=== PATIENT | female | born 1995 | race Caucasian/White ===

== ENCOUNTER 2019-04-25 06:05 | Inpatient (IN) | payer OTHER ==
[~2019-04-25] VITALS: Ht 160 cm; Wt 93.0 kg
--- OUTSIDE RECORDS SUMMARY | ~2019-04-25 | XMS | Clinical Summary ---
Demographics + + + | Address | [address] | | | [place] [address] | + + + | Home Phone | | + + + | Preferred Language | Unknown | + + + | Marital Status | Single | + + + | Taoist Affiliation | 1013 | + + + | Race | Unknown | + + + | Ethnic Group | Unknown | + + + Author + + + | Author | [facility] | | | and [place] | + + + | Organization | [facility] | | | and [place] | + + + | Address | Unknown | + + + | Phone | Unavailable | + + + Support + + +---------+ + | Name | Relationship | Address | Phone | + + +---------+ + | Chastity Petty | ECON | Unknown | | + + +---------+ + | Nyasia Lindsay | ECON | Unknown | | + + +---------+ + Care Team Providers + +------+ + | Care Heel Cutter Name | Role | Phone | + +------+ + | Josee Person | PCP | | + +------+ + Allergies No Known Allergies Medications + + + +---------+------+------+-------+ | Medication | Sig | Dispensed | Refills | Star | End | Statu | | | | | | t | Date | s | | | | | | Date | | | + + + +---------+------+------+-------+ | Biotin 2.5 MG CAPS | Take 1 capsule by | | 0 | | | Activ | | | mouth Daily. | | | | | e | + + + +---------+------+------+-------+ | topiramate | Take 1 tablet by | 30 | 11 | 02/25 | | Activ | | (TOPAMAX) 25 mg | mouth At Bedtime. | tablet | | 7/20 | | e | | tabletIndications: | | | | 18 | | | | Intractable migraine | | | | | | | | with aura with | | | | | | | | status migrainosus | | | | | | | + + + +---------+------+------+-------+ | naproxen sodium | Take 1 tablet by | 30 | 3 | 02/25 | | Activ | | (ANAPROX) 550 MG | mouth Twice daily | tablet | | 720 | | e | | tabletIndications: | as needed. | | | 18 | | | | Intractable migraine | | | | | | | | with aura with | | | | | | | | status migrainosus | | | | | | | + + + +---------+------+------+-------+ | cephalexin | Take 1 capsule by | 40 | 0 | 10/0 | | Activ | | (KEFLEX) 500 mg | mouth 4 times daily. | capsule | | 8/20 | | e | | capsule | | | | 18 | | | + + + +---------+------+------+-------+ | ondansetron | Take 1 tablet by | 24 | 0 | 10/0 | | Activ | | (ZOFRAN ODT) 4 mg | mouth every 8 hours | tablet | | 8/20 | | e | | disintegrating | as needed for | | | 18 | | | | tablet | Nausea. | | | | | | + + + +---------+------+------+-------+ Active Problems + + + | Problem | Noted Date | + + + | Intractable migraine with aura with status migrainosus | 11/23/2017 | + + + Immunizations + + + + | Name | Dates Previously Given | Next Due | + + + + | DTP (PED) | 02/13/2003, 12/09/1999, 06/10/1998, | | | | 03/13/1998, 01/01/1998 | | + + + + | HEP A, 2 DOSE | 02/13/2003, 11/02/2000 | | | (PED/ADOL) | | | + + + + | HIB (PRP-OMP), 3 | 02/08/2000 | | | DOSE (PED) | | | + + + + | HIB HBOC CONJUGATE, | 02/08/2000, 12/09/1999, 06/10/1998, | | | 4 DOSE (PED) | 03/13/1998, 01/01/1998 | | + + + + | HPV, QUADRIVALENT, 3 | 01/04/2012, 07/03/2010, 05/16/2010 | | | DOSE (ADOL/ADULT) | | | + + + + | Hep B (PED/ADOL) 3 | 06/10/1998, 01/01/1998, 1997 | | | DOSE | | | + + + + | INFLUENZA PF | 04/18/2015, 04/04/2014 | | | TRIVALENT(PED/ADOL/A | | | | DULT)ANDERSONKT | | | + + + + | INFLUENZA, TRIVALENT | 05/16/2010 | | | NASAL | | | | (PED/ADOL/ADULT) | | | + + + + | MENINGOCOCCAL | 05/16/2010 | | | CONJUGATE,MENACTRA | | | | (PED/ADOL/ADULT) | | | + + + + | MMR, 2 DOSE | 02/13/2003, 12/23/1998 | | | (PED/ADULT) | | | + + + + | PNEUMOCOCCAL PCV7 | 11/02/2000 | | | (PED) | | | + + + + | PNEUMOCOCCAL | 11/02/2000 | | | POLYSACCHARIDE | | | | 23-VALENT (PPSV23) | | | + + + + | TDAP, (ADOL/ADULT) | 05/16/2010 | | + + + + | VARICELLA, 2 DOSE | 10/25/2008, 12/23/1998 | | | (VARIVAX) | | | + + + + Family History + + +------+ + | Medical History | Relation | Name | Comments | + + +------+ + | Asthma | Brother | | | + + +------+ + | Arthritis | Father | | | + + +------+ + | Heart disease | Father | | | + + +------+ + | Sleep apnea | Father | | | + + +------+ + | Heart disease | Maternal | | | | | Grandfath | | | | | er | | | + + +------+ + | defects | Maternal | | | | | Grandmoth | | | | | er | | | + + +------+ + | Arthritis | Mother | | | + + +------+ + | Migraines | Mother | | | + + +------+ + | defects | Paternal | | | | | Grandmoth | | | | | er | | | + + +------+ + + +------+--------+ + | Relation | Name | Status | Comments | + +------+--------+ + | Brother | | | | + +------+--------+ + | Father | | | | + +------+--------+ + | Maternal Grandfather | | | | + +------+--------+ + | Maternal Grandmother | | | | + +------+--------+ + | Mother | | | | + +------+--------+ + | Paternal Grandmother | | | | + +------+--------+ + Social History + +-------+ +--------+------+ | Tobacco Use | Types | Packs/Day | Years | Date | | | | | Used | | + +-------+ +--------+------+ | Never Smoker | | | | | + +-------+ +--------+------+ + +---+---+---+ | Smokeless Tobacco: | | | | | Never Used | | | | + +---+---+---+ + + +---------+ + | Alcohol Use | Drinks/We | oz/Week | Comments | | | ek | | | + + +---------+ + | No | | | | + + +---------+ + + + + | Sex Assigned at | Date Recorded | | | | + + + | Not on file | | + + + + + + + | Job Start Date | Occupation | Industry | + + + + | Not on file | Not on file | Not on file | + + + + + + + + | Travel History | Travel Start | Travel End | + + + + + + | No recent travel history available. | + + Last Filed Vital Signs + + + + | Vital Sign | Reading | Time Taken | + + + + | Blood Pressure | 117/85 | 04/11/2018 1527 PDT | + + + + | Pulse | 93 | 04/11/20181526 PDT | + + + + | Temperature | 36.2 C (97.2 F) | 04/11/20181526 PDT | + + + + | Respiratory Rate | 16 | 04/11/20181526 PDT | + + + + | Oxygen Saturation | 99% | 04/11/20181526 PDT | + + + + | Inhaled Oxygen | - | - | | Concentration | | | + + + + | Weight | 77.1 kg (170 lb) | 04/11/20181526 PDT | + + + + | Height | 157.5 cm (5' 2") | 04/11/20181526 PDT | + + + + | Body Mass Index | 31.09 | 04/11/20181526 PDT | + + + + Plan of Treatment + + + + + | Health Maintenance | Due Date | Last Done | Comments | + + + + + | Well Child Check | | | | | | 1 | | | + + + + + | Cervical Cancer | | | | | Screening (Pap) | 9 | | | + + + + + | Vaccine: Influenza | | 04/18/2015, 04/04/2014, | | | (#1) | 9 | 05/16/2010 | | + + + + + | Primary Care | | 03/13/2018, 12/20/2017, | | | Outreach (Low Risk) | 0 | 11/23/2017, Additional history | | | | | exists | | + + + + + | Vaccine: | | 05/16/2010, 02/13/2003, | | | Dtap/Tdap/Td (7 - | 0 | 12/09/1999, Additional history | | | Td) | | exists | | + + + + + | Vaccine: HPV | Completed | 01/04/2012, 07/03/2010, | | | | | 05/16/2010 | | + + + + + Results Not on filefrom Last 3 Months Insurance + +--------+ +--------+ +---------+--------+ | Payer | Benefi | Subscriber | Effect | Phone | Address | Type | | | t Plan | ID | lloyd | | | | | | / | | Dates | | | | | | Group | | | | | | + +--------+ +--------+ +---------+--------+ | [employer] [facility] | PHP | [id number] | 06/27/19 | [phone] | | PPO | | PLAN | PEBB | | 18-Pre | 5 | | | | | PROV | | sent | | | | | | CHOICE | | | | | | + +--------+ +--------+ +---------+--------+ | [employer] [place] | MEDICA | [id number] | | [phone] | | Medica | | | [place] | | 018-Pr | 2 | | id | | | PLUS | | esent | | | | + +--------+ +--------+ +---------+--------+ + +--------+ +--------+ + + | Guarantor Name | Accoun | Relation to | Date | Phone | Billing Address | | | t Type | Patient | of | | | | | | | | | | + +--------+ +--------+ + + | Maria C Petty | Person | Self [birth year] | [address] | | | al/Fam | | 1995 | [phone] | [place] [address] | | | francisco | | | 4 (Home) | | + +--------+ +--------+ + + Advance Directives Patient has advance care planning documents on file. For more information, please contact:[facility] / [place] [address]
[2019-04-25] MEDS ORDERED: ACYCLOVIR400 MG PO (06:49)
[2019-04-25] MEDS ORDERED: PRENATAL VITAM1 EACH PO (06:50)
--- NOTE | 2019-04-25 13:01 | PR ---
[facility] [address] [facility] [place], [place] [address] Signed Progress Notes IP Datetime Report Generated by CPN: 04/25/2019 13:01 PROGRESS NOTES: [id number] Impression: Slow Progression of Labor Plan: Continue present management VITAL SIGNS: [id number] Vital Signs: Reviewed; Within Normal Limits EXAM: [id number] Dilatation: 2.0 Effacement: 50 Station: -3 Uterine Contractions: irregular MEMBRANES: [id number] Pooling: Negative Nitrazine: Positive Membrane Status: Intact Comments: Contractions begging to get stronger. Due for 3rd Cytotec now Fetus A: [id number] FHR Baseline: 135 Variability: Moderate 6-25bpm Accelerations: 15X15 Decelerations: None FHR Category: Category I Presentation: Vertex Comments on Fetus A: No evidence of metabolic acidosis Fetus B: [id number] Signing Physician: Danitza Reza MD Copies: ~ *Electronically Signed* 04/25/19 1301 DANITZA REZA MD PATIENT NAME: ORION VALLEJO PROGRESS NOTE DATE OF : 97 PHYSICIAN: DANITZA REZA MD RPT #: [id number] REPORT IS CONFIDENTIAL AND NOT TO BE RELEASED WITHOUT AUTHORIZATION
--- NOTE | 2019-04-25 18:05 | PR ---
[facility] [address] [facility] [place], [place] [address] Signed Progress Notes IP Datetime Report Generated by CPN: 04/25/2019 18:05 PROGRESS NOTES: [id number] Impression: Slow Progression of Labor Procedures: Epidural Placement Plan: Continue present management VITAL SIGNS: [id number] Vital Signs: Reviewed; Within Normal Limits EXAM: L4003257 Dilatation: 2.0 Effacement: 50 Station: -2 Uterine Contractions: every 2-4 minutes MEMBRANES: [id number] Pooling: Negative Nitrazine: Positive Membrane Status: Intact Comments: C/o painful contractions but no real progress. Tried IV Fentanyl/Phenergan with only temporary relief. Will get Epidural before trying AROM since only 2 cm and patient uncomfortable Fetus A: [id number] FHR Baseline: 140 Variability: Moderate 6-25bpm Accelerations: 15X15 Decelerations: None FHR Category: Category I Presentation: Vertex Comments on Fetus A: No evidence of metabolic acidosis Fetus B: [id number] Signing Physician: Danitza Reza MD Copies: ~ *Electronically Signed* 04/25/19 1805 DANITZA REZA MD PATIENT NAME: ORION VALLEJO PROGRESS NOTE DATE OF : 97 PHYSICIAN: DANITZA REZA MD RPT #: [id number] REPORT IS CONFIDENTIAL AND NOT TO BE RELEASED WITHOUT AUTHORIZATION
--- NOTE | 2019-04-25 20:17 | PR ---
[facility] [address] [place], [place] [address] Signed Progress Notes IP Datetime Report Generated by CPN: 04/25/2019 20:17 PROGRESS NOTES: [id number] Impression: Slow Progression of Labor Procedures: Artificial ROM; Intrauterine Pressure Catheter; Scalp Electrode Plan: Continue present management VITAL SIGNS: O1306567 Vital Signs: Reviewed; Within Normal Limits EXAM: N7405039 Dilatation: 2.0 Effacement: 50 Station: -3 Uterine Contractions: every 2-4 minutes MEMBRANES: [id number] Pooling: Negative Nitrazine: Positive Membrane Status: Ruptured Amniotic Fluid Color: Clear ROM Note: AROM wtih large amount clear fluid Comments: Comfortabled with Epidural. Bradycardia and few late decelerations after Epidural, but coincides with hypotension post Epidural. Patient given Ephedrine, O2 by terrance, now resolved. Will start Pitocin if no progress soon. Discussed plan with patient Fetus A: [id number] FHR Baseline: 150 Variability: Moderate 6-25bpm Accelerations: 15X15 Decelerations: None FHR Category: Category I Presentation: Vertex Comments on Fetus A: No evidence of metabolic acidosis Fetus B: [id number] Signing Physician: Danitza Reza MD Copies: ~ *Electronically Signed* 04/25/192016 DANITZA REZA MD PATIENT NAME: ORION VALLEJO PROGRESS NOTE DATE OF : 97 PHYSICIAN: DANITZA REZA MD RPT #: [id number] REPORT IS CONFIDENTIAL AND NOT TO BE RELEASED WITHOUT AUTHORIZATION
--- NOTE | 2019-04-26 06:56 | PR ---
[facility] [facility] [address] [facility] [place], [place] [address] Signed Progress Notes IP Datetime Report Generated by CPN: 04/26/2019 06:56 PROGRESS NOTES: [id number] Impression: Normal progression of labor Procedures: Artificial ROM; Intrauterine Pressure Catheter; Scalp Electrode Plan: Continue present management VITAL SIGNS: [id number] Vital Signs: Reviewed; Within Normal Limits EXAM: [id number] Dilatation: 9.0 Effacement: 90 Station: 1 Uterine Contractions: every 2 minutes MEMBRANES: [id number] Pooling: Negative Nitrazine: Positive Membrane Status: Ruptured Amniotic Fluid Color: Clear ROM Note: AROM wtih large amount clear fluid Comments: Beginning to feel more pelvic pressure. Continue close monitoring, anticipate will start pushing soon. Fetus A: [id number] FHR Baseline: 140 Variability: Moderate 6-25bpm Accelerations: 15X15 Decelerations: None FHR Category: Category I Presentation: Vertex Comments on Fetus A: No evidence of metabolic acidosis Fetus B: [id number] Signing Physician: Danitza Reza MD Copies: ~ *Electronically Signed* 04/26/19 0656 DANITZA REZA MD PATIENT NAME: ORION VALLEJO PROGRESS NOTE DATE OF : 97 PHYSICIAN: DANITZA REZA MD RPT #: [id number] REPORT IS CONFIDENTIAL AND NOT TO BE RELEASED WITHOUT AUTHORIZATION
--- NOTE | 2019-04-26 08:21 | PR ---
[facility] [address] [facility] [place], [place] [address] Signed Progress Notes IP Datetime Report Generated by CPN: 04/26/2019 08:21 PROGRESS NOTES: [id number] Impression: Normal progression of labor Procedures: Artificial ROM; Intrauterine Pressure Catheter; Scalp Electrode Plan: Anticipate Vaginal Delivery VITAL SIGNS: [id number] Vital Signs: Reviewed; Within Normal Limits EXAM: [id number] Dilatation: 10.0 Effacement: 100 Station: 1 Uterine Contractions: every 2 minutes MEMBRANES: [id number] Pooling: Negative Nitrazine: Positive Membrane Status: Ruptured Amniotic Fluid Color: Clear ROM Note: AROM wtih large amount clear fluid Comments: Pushing well now. Fetus A: [id number] FHR Baseline: 140 Variability: Moderate 6-25bpm Accelerations: 15X15 Decelerations: Variable FHR Category: Category I Presentation: Vertex Comments on Fetus A: No evidence of metabolic acidosis Fetus B: [id number] Signing Physician: Danitza Reza MD Copies: ~ *Electronically Signed* 04/26/19 0821 DANITZA REZA MD PATIENT NAME: ORION VALLEJO PROGRESS NOTE DATE OF : 97 PHYSICIAN: DANITZA REZA MD RPT #: [id number] REPORT IS CONFIDENTIAL AND NOT TO BE RELEASED WITHOUT AUTHORIZATION
--- NOTE | 2019-04-26 08:55 | PR ---
[facility] [address] [facility] [place], [place] [address] Signed Progress Notes IP Datetime Report Generated by CPN: 04/26/2019 08:55 PROGRESS NOTES: [id number] Impression: Normal progression of labor Procedures: Artificial ROM; Intrauterine Pressure Catheter; Scalp Electrode Plan: Continue present management; Anticipate Vaginal Delivery VITAL SIGNS: V4281373 Vital Signs: Reviewed; Within Normal Limits EXAM: Q6538974 Dilatation: 10.0 Effacement: 100 Station: 2 Uterine Contractions: every 2 minutes MEMBRANES: [id number] Pooling: Negative Nitrazine: Positive Membrane Status: Ruptured Amniotic Fluid Color: Clear ROM Note: AROM wtih large amount clear fluid Comments: Pushing well Fetus A: [id number] FHR Baseline: 135 Variability: Moderate 6-25bpm Accelerations: 15X15 Decelerations: Late; Variable FHR Category: Category I Presentation: Vertex Other Presentation: TORY Comments on Fetus A: No evidence of metabolic acidosis Fetus B: [id number] Signing Physician: Jung Reza MD Copies: ~ *Electronically Signed* 04/26/19 0855 JUNG REZA MD PATIENT NAME: ORION VALLEJO PROGRESS NOTE DATE OF : 97 PHYSICIAN: JUNG REZA MD RPT #: [id number] REPORT IS CONFIDENTIAL AND NOT TO BE RELEASED WITHOUT AUTHORIZATION
--- NOTE | 2019-04-27 12:35 | PR ---
[facility] [address] [facility] [place] [address] Signed PP Progress Notes Datetime Report Generated by N: 04/27/2019 12:35 SUBJECTIVE: [id number] Pain: Within normal limits Nausea/Vomiting: Denies Vital Signs: M1897497 Vital Signs: Reviewed; Within Normal Limits EXAM: G7318892 Abdomen/Uterus: Normal Lochia: Normal Extremities: Normal IMPRESSION/PLAN/PROCEDURES: K3252949 Impression: Normal progression Plan: Continue present management Procedures: None Progress Notes: Doing well, without complaint Signing Physician: Danitza Reza MD Copies: ~ *Electronically Signed* 04/27/19 1235 DANITZA REZA MD PATIENT NAME: ORION VALLEJO PROGRESS NOTE DATE OF : 97 PHYSICIAN: DANITZA REZA MD RPT #: [id number] REPORT IS CONFIDENTIAL AND NOT TO BE RELEASED WITHOUT AUTHORIZATION
--- NOTE | 2019-04-28 10:33 | PR ---
[facility] [address] [facility] [place] [address] Signed PP Progress Notes Datetime Report Generated by CPN: 04/28/2019 10:33 SUBJECTIVE: [id number] Pain: Within normal limits Nausea/Vomiting: Denies Vital Signs: K9423917 Vital Signs: Reviewed; Within Normal Limits Notable Details: PP Hgb/Hct = 9.6/27.8 EXAM: K7099222 Abdomen/Uterus: Normal Lochia: Normal Extremities: Normal IMPRESSION/PLAN/PROCEDURES: G6300790 Impression: Normal progression Other Impression: PP Anemia Plan: Discharge Procedures: None Progress Notes: Doing well, ready to go home. Signing Physician: Danitza Reza MD Copies: ~ *Electronically Signed* 04/28/19 1033 DANITZA REZA MD PATIENT NAME: ORION VALLEJO PROGRESS NOTE DATE OF : 97 PHYSICIAN: DANITZA REZA MD RPT #: [id number] REPORT IS CONFIDENTIAL AND NOT TO BE RELEASED WITHOUT AUTHORIZATION
== END 2019-04-28 16:10 | disposition home or self-care (01) | DRG 806 ==
LOC: FBC 06:05
PROVIDERS: ADMIT General Practice
PROC: 3E0P7VZ Introduction of Hormone into Female Reproductive, Via Natural or Artificial Opening (ICD-10-PCS; 2019-04-25)
PROC: 10907ZC Drainage of Amniotic Fluid, Therapeutic from Products of Conception, Via Natural or Artificial Opening (ICD-10-PCS; 2019-04-25)
PROC: 10H07YZ Insertion of Other Device into Products of Conception, Via Natural or Artificial Opening (ICD-10-PCS; 2019-04-25)
PROC: 00HU33Z Insertion of Infusion Device into Spinal Canal, Percutaneous Approach (ICD-10-PCS; 2019-04-25)
PROC: 3E0R3BZ Introduction of Anesthetic Agent into Spinal Canal, Percutaneous Approach (ICD-10-PCS; 2019-04-25)
PROC: 10E0XZZ Delivery of Products of Conception, External Approach (ICD-10-PCS; principal; 2019-04-26)
PROC: 0UQGXZZ Repair Vagina, External Approach (ICD-10-PCS; 2019-04-26)
DX: O76 Abnormality in fetal heart rate and rhythm complicating labor and delivery (principal); O71.4 Obstetric high vaginal laceration alone; Z37.0 Single live birth; O98.32 Other infections with a predominantly sexual mode of transmission complicating childbirth; O99.324 Drug use complicating childbirth; F12.90 Cannabis use, unspecified, uncomplicated; O74.8 Other complications of anesthesia during labor and delivery; I95.2 Hypotension due to drugs; O66.0 Obstructed labor due to shoulder dystocia; Z3A.39 39 weeks gestation of pregnancy; O69.81X0 Labor and delivery complicated by cord around neck, without compression, not applicable or unspecified; A60.00 Herpesviral infection of urogenital system, unspecified; O90.81 Anemia of the puerperium; D64.9 Anemia, unspecified; Y92.239 Unspecified place in hospital as the place of occurrence of the external cause; Z79.899 Other long term (current) drug therapy
CPT/HCPCS: 01960; 36415; 82803; 85027; A9270; J2550; J2590; J2795; J3010; J7121

== ENCOUNTER 2021-07-03 05:29 | Emergency (ER) | payer OTHER ==
[~2021-07-03] VITALS: Ht 160 cm; Wt 59.7 kg
[~2021-07-03 05:29] MED LIST: ACYCLOVIR400 MG PO; KEFLEX500 MG PO; NORCO 5-325 TA1 EACH PO; PHENTERMINE H37.5 M1 PO; PRENATAL VITAM1 EACH PO
--- OUTSIDE RECORDS SUMMARY | 2021-07-03 05:32 | XMS ---
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 Caleb VISIT COUNT (12 MO.) [address] [place] [address] BELEN Borrero TOTAL 5 NOTE: Visits indicate total known visits. ED/UCC VISIT TRACKING (12 MO.) 07/03/2021 05:30 [facility] [place] TYPE: Emergency COMPLAINT: - DIZZY, NAUSOUS, ABD PAIN 12/21/2020 05:51 [email or web address] [place] TYPE: Emergency DIAGNOSES: - migraine - Other migraine, not intractable, without status migrainosus 11/14/2020 06:12 [employer] [place] TYPE: Emergency DIAGNOSES: - Other migraine, not intractable, without status migrainosus - Migraine 08/01/2020 11:01 [employer] [place] TYPE: Emergency DIAGNOSES: - Nausea - Other specified postprocedural states - Other acute postprocedural pain - SP PAIN 07/30/2020 17:32 [email or web address] [place] TYPE: Emergency DIAGNOSES: - GALLSTONES - Unspecified acute appendicitis INPATIENT VISIT TRACKING (12 MO.) No inpatient visits to display in this time frame [email or web address]
== END 2021-07-03 09:10 | disposition home or self-care (01) ==
LOC: ED 05:29
DX: S20.212A Contusion of left front wall of thorax, initial encounter (principal); S20.222A Contusion of left back wall of thorax, initial encounter; S30.1XXA Contusion of abdominal wall, initial encounter; R11.2 Nausea with vomiting, unspecified; F12.90 Cannabis use, unspecified, uncomplicated; V00.311A Fall from snowboard, initial encounter; F17.200 Nicotine dependence, unspecified, uncomplicated
CPT/HCPCS: 70450; 71260; 72125; 74177; 80053; 81001; 83690; 84703; 85025; 96374; 99284-25; J2405; J7030; Q9967

== ENCOUNTER 2023-11-27 09:34 | Emergency (ER) | payer OTHER ==
[~2023-11-27] VITALS: Ht 160 cm; Wt 79.2 kg
[2023-11-27 09:58] LABS: BASOPHILS 0.2 % (0-2); EOSINOPHILS 0.8 % (0-6); HEMATOCRIT 38.1 % (35.0-50.0); HEMOGLOBIN 13.2 g/dL (12.0-18.0); LYMPHOCYTES 5.1 % (24-44); MCH 32.6 (27-36); MCHC 34.7 g/dl (30-36); MONOCYTES 4.3 % (0-12); NEUTROPHILS 89.6 % (39-80); PLATELET COUNT 218 K/uL (140-440); RBC 4.06 M/ul (4.3-5.7); RDW 12.6 (10.5-15.0)
[2023-11-27] MEDS ORDERED: SODIUM CHLORIDE 0.9% 1,000 ML IV ONE ×2 (10:00→11:45)
[2023-11-27] MEDS ORDERED: ondansetron HCL 4 MG/2 ML VIAL IV ONE ×2 (10:00→12:45)
[2023-11-27] MEDS ORDERED: SODIUM CHLORIDE 0.9% 500 ML IV ONE (10:00)
[2023-11-27] MEDS ORDERED: ACETAMINOPHEN 500 MG TAB PO ONE (10:00)
[2023-11-27] MEDS ORDERED: PRENATABS FA T1 EACH PO (10:03)
[2023-11-27 10:19] LABS: ALBUMIN/GLOBULIN RATIO 0.65 (1.1-2.4); ANION GAP 18.7 (7-21); BILIRUBIN, TOTAL 0.8 ng/dL (0.2-1.0); BUN/CREATININE RATIO 15.62 (6.0-28.6); CALCIUM 7.9 mg/dL (8.5-10.1); CREATININE, SERUM 0.64 mg/dL (0.55-1.02); MAGNESIUM 1.9 mg/dL (1.8-2.4); POTASSIUM 3.7 mmol/L (3.5-5.1); PROTEIN, TOTAL 7.6 g/dL (6.4-8.2)
[2023-11-27 11:14] LABS: BILIRUBIN, URINE NEGATIVE (negative); BLOOD/HGB, URINE NEGATIVE (Negative); KETONE, URINE >=80 (Negative); LEUK ESTERASE, URINE NEGATIVE (negative); NITRITE, URINE NEGATIVE (negative)
[2023-11-27 11:53] LABS: INFLUENZA B NAA NEGATIVE (NEGATIVE); RESPIRATORY SYNCYTIAL VIR NAA NEGATIVE (NEGATIVE)
[2023-11-27] MEDS ORDERED: ONDANSETRON ODT8 MG PO (12:21)
[2023-11-27] MEDS ORDERED: PROMETHAZINE HC25 M1 PO (12:41)
[2023-11-27 12:54] VITALS: BP 111/64
== END 2023-11-27 12:55 | disposition home or self-care (01) ==
LOC: ED 09:34
PROVIDERS: Emergency Medicine
DX: O99.613 Diseases of the digestive system complicating pregnancy, third trimester (principal); A08.4 Viral intestinal infection, unspecified; O99.333 Smoking (tobacco) complicating pregnancy, third trimester; F17.200 Nicotine dependence, unspecified, uncomplicated; Z3A.36 36 weeks gestation of pregnancy; Z79.899 Other long term (current) drug therapy
CPT/HCPCS: 36415; 59025; 80053; 81003; 83735; 85025; 87502; 96361; 96374; 96376; 99284-25; A9270; J2405; J7030; J7040; U0002

== ENCOUNTER 2023-12-20 08:43 | Inpatient (IN) | payer OTHER ==
[~2023-12-20] VITALS: Ht 157.5 cm; Wt 81.6 kg
[~2023-12-20 08:43] MED LIST changes: +ONDANSETRON ODT8 MG PO; +PRENATABS FA T1 EACH PO; +PROMETHAZINE HC25 M1 PO
[2023-12-20] MEDS ORDERED: CALCIUM CARBONATE 500 MG CHEW PO PRN ×2 (10:45→23:45)
[2023-12-20] MEDS ORDERED: LACTATED RINGER'S 1,000 ML IV PRN (10:45)
[2023-12-20] MEDS ORDERED: OXYTOCIN/0.9 % SODIUM CHLORIDE 30 UNITS/500 ML BAG IV SCH (10:45)
[2023-12-20] MEDS ORDERED: MAGNESIUM HYDROXIDE/AL HYDROX 30 ML CUP PO PRN ×2 (10:45→23:45)
[2023-12-20 10:58] LABS: HEMATOCRIT 34.1 % (35.0-50.0); HEMOGLOBIN 11.8 g/dL (12.0-18.0); MCH 32.2 (27-36); MCHC 34.6 g/dl (30-36); MCV 92.9 fl (81-99); RBC 3.67 M/ul (4.3-5.7)
[2023-12-20 11:38] LABS: AMPHETAMINES, URINE NEGATIVE (NEGATIVE); BARBITURATES, URINE NEGATIVE (NEGATIVE); BENZODIAZEPINE, URINE NEGATIVE (NEGATIVE); BUPRENORPHINE, URINE NEGATIVE (NEGATIVE); CANNABINOID, URINE POSITIVE (NEGATIVE); COCAINE, URINE NEGATIVE (NEGATIVE); ECSTASY, URINE NEGATIVE (NEGATIVE); FENTANYL, URINE NEGATIVE (NEGATIVE); METHADONE, URINE NEGATIVE (NEGATIVE); OPIATES, URINE NEGATIVE (NEGATIVE); OXYCODONE, URINE NEGATIVE (NEGATIVE); PHENCYCLIDINE, URINE NEGATIVE (NEGATIVE)
[2023-12-20 11:46] LABS: ABO O; RH POSITIVE
[2023-12-20 11:47] LABS: ANTIBODY SCREEN NEGATIVE
--- NOTE | 2023-12-20 17:45 | PR ---
[facility] [address] [facility] [place], [place] [address] Signed Progress Notes IP Datetime Report Generated by CPN: 12/20/2023 17:45 PROGRESS NOTES: [id number] Impression: Normal Progression of Labor; Reassuring Heart Rate Procedures: Sterile Vag Exam Plan: Continue Present Management; Anesthesia Consult; Anticipate Vaginal Delivery Informed Consent Obtain: Vaginal Delivery VITAL SIGNS: B4813012 Vital Signs: Reviewed; Within Normal Limits EXAM: [id number] Dilatation: 3.5 Effacement: 70 Station: -2 Contractions: q 3-4 min MEMBRANES: K0633136 Comments: Pt seen and examined. Becoming more uncomfortable w/ contractions. Requesting epidural. Cervix unchanged. Cat 1 tracing. Will consider IUPC / pitocin if unchanged at next check. Pt understands and agrees FETUS A: [id number] FHR Baseline: 130 Variability: Moderate 6-25bpm Accelerations: 15X15 Decelerations: None FHR Category: Category I Presentation: Vertex Comments on Fetus A: No evidence of metabolic acidosis FETUS B: [id number] Signing Physician: Kandy Zhang DO Copies: ~ *Electronically Signed* 12/20/23 3861 KANDY ZHANG (SALTY) DO PATIENT NAME: ORION VALLEJO PROGRESS NOTE DATE OF : 97 PHYSICIAN: KANDY ZHANG) DO RPT #: [id number] REPORT IS CONFIDENTIAL AND NOT TO BE RELEASED WITHOUT AUTHORIZATION
[2023-12-20] MEDS ORDERED: ROPIVACAINE 0.2% 200 ML BAG ONE (17:47)
[2023-12-20] MEDS ORDERED: fentaNYL citrate 100 MCG/2 ML VIAL ONE (17:47)
[2023-12-20] MEDS ORDERED: ROPIVACAINE 0.2% 200 ML BAG EPIDURAL SCH (18:15)
[2023-12-20] MEDS ORDERED: ePHEDrine sulfate 5 MG/ML SYRINGE IV PRN (18:15)
[2023-12-20] MEDS ORDERED: LACTATED RINGER'S 2,000 ML IV ONE (18:15)
[2023-12-20] MEDS ORDERED: LACTATED RINGER'S 500 ML IV PRN (18:15)
[2023-12-20 20:00] VITALS: BP 97/62
--- NOTE | 2023-12-20 20:30 | PR ---
[facility] [address] [place], [place] [address] Signed Progress Notes IP Datetime Report Generated by CPN: 12/20/2023 20:30 PROGRESS NOTES: [id number] Impression: Normal Progression of Labor; Reassuring Heart Rate Procedures: Intrauterine Pressure Catheter; Sterile Vag Exam Plan: Continue Present Management Informed Consent Obtain: Vaginal Delivery VITAL SIGNS: A8186792 Vital Signs: Reviewed; Within Normal Limits EXAM: [id number] Dilatation: 5.0 Effacement: 80 Station: -1 Contractions: q 2 minutes; inadequate MEMBRANES: P2329014 Comments: Pt seen and examined. Comfortable w/ epidural. Slow cervical change noted. IUPC placed w/out difficulty. Decel noted and now resolved. Will continue to monitor. Discussed LOP position and RN's will assist w/ position changes to encourage rotation to OA position. All questions answered. FETUS A: [id number] FHR Baseline: 130 Variability: Moderate 6-25bpm Accelerations: 15X15 Decelerations: Prolonged FHR Category: Category II Presentation: Vertex Comments on Fetus A: No evidence of metabolic acidosis FETUS B: [id number] Signing Physician: Kandy Zhang DO Copies: ~ *Electronically Signed* 12/20/232029 KANDY ZHANG (SALTY) DO PATIENT NAME: ORION VALLEJO PROGRESS NOTE DATE OF : 97 PHYSICIAN: KANDY ZHANG (JD) DO RPT #: [id number] REPORT IS CONFIDENTIAL AND NOT TO BE RELEASED WITHOUT AUTHORIZATION
[2023-12-20] MEDS ORDERED: ondansetron HCL 4 MG/2 ML VIAL IV PRN (21:45)
[2023-12-20] MEDS ORDERED: WITCH HAZEL/GLYCERIN 1 EA PAD TOP PRN (23:45)
[2023-12-20] MEDS ORDERED: IBUPROFEN 600 MG TAB PO PRN (23:45)
[2023-12-20] MEDS ORDERED: ACETAMINOPHEN 325 MG TAB PO PRN (23:45)
[2023-12-20] MEDS ORDERED: BENZOCAINE 60 ML AEROSOL TOP PRN (23:45)
[2023-12-20] MEDS ORDERED: HYDROCORTISONE ACETATE 25 MG SUPP PR PRN (23:45)
[2023-12-20] MEDS ORDERED: OXYTOCIN/0.9 % SODIUM CHLORIDE 500 ML IV SCH (23:45)
[2023-12-20] MEDS ORDERED: OXYCODONE/APAP 5/325 TAB PO PRN (23:45)
[2023-12-20] MEDS ORDERED: MAGNESIUM HYDROXIDE 30 ML UDC PO PRN (23:45)
[2023-12-20] MEDS ORDERED: HYDROCODONE/ACETA 5/325 TAB PO PRN (23:45)
[2023-12-21 05:42] LABS: HEMATOCRIT 33.4 % (35.0-50.0); HEMOGLOBIN 11.6 g/dL (12.0-18.0); MCH 32.1 (27-36); MCHC 34.6 g/dl (30-36); MCV 92.6 fl (81-99); RBC 3.61 M/ul (4.3-5.7); RDW 12.7 (10.5-15.0)
[2023-12-21] MEDS ORDERED: SENNOSIDES/DOCUSATE 1 EA TAB PO SCH (09:00)
--- NOTE | 2023-12-21 17:30 | PR ---
[facility] [address] [facility] [place], [place] [address] Signed PP Progress Notes Datetime Report Generated by CPN: 12/21/2023 17:29 SUBJECTIVE: [id number] Pain: Within Normal Limits Nausea/Vomiting: Denies Flatus: Yes Bowel Movement: No Vital Signs: E8934367 Vital Signs: Reviewed; Within Normal Limits EXAM: Ongoing Cardiovascular: Normal Respiratory: Normal Abdomen/Uterus: Normal Lochia: Normal Vulva/Perineum: Not Done Breasts: Not Done CVA Tenderness: Normal Extremities: Normal Incision: Not Applicable Progress: Normal Exam Comments: Fundus firm U-2 nontender IMPRESSION/PLAN/PROCEDURES: [id number] Impression: Normal Progression Plan: Continue Present Management Progress Notes: Pt seen and examined. Doing well. Ambulating, voiding, and tolerating full diet. Pain and lochia minimal. . No concerns. Anticipate d/c home tomorrow. Hgb 11.6 Signing Physician: Kandy Zhang DO Copies: ~ *Electronically Signed* 12/21/23 0088 KANDY ZHANG (SALTY) DO PATIENT NAME: YONIORION WAGNER PROGRESS NOTE DATE OF : 97 PHYSICIAN: KANDY ZHANG (SALTY) DO RPT #: [id number] REPORT IS CONFIDENTIAL AND NOT TO BE RELEASED WITHOUT AUTHORIZATION
--- NOTE | 2023-12-22 08:14 | PR ---
[facility] [address] [place], [place] [address] Signed PP Progress Notes Datetime Report Generated by CPN: 12/22/2023 08:14 SUBJECTIVE: [id number] Pain: Within Normal Limits Nausea/Vomiting: Denies Flatus: Yes Bowel Movement: No Vital Signs: [id number] Vital Signs: Reviewed Notable Details: some overnight and molder hand low pressures. Patient asymptomatic. EXAM: Ongoing Cardiovascular: Not Done Respiratory: Normal Abdomen/Uterus: Normal Lochia: Normal Vulva/Perineum: Not Done Breasts: Not Done CVA Tenderness: Not Done Extremities: Normal Incision: Not Applicable Progress: Normal Exam Comments: Fundus firm U-2 nontender IMPRESSION/PLAN/PROCEDURES: [id number] Impression: Normal Progression Plan: Discharge Procedures: None Progress Notes: S: 28 yo s/p vaginal delivery. PPD#2. Doing well. Denies WEBBER, CP, SOB, F/C, N/V, RUQ pain, changes in vision, vaginal discharge. Normal lochia. Tolerating regular diet, ambulating, voiding on own, pain controlled. O: AFVSS Abd: Soft. Non-tender. Fundus firm and below umbilicus. Musc: ALCAZAR. A/P: 28 yo s/p vaginal delivery. PPD#2. Doing well. Meeting all hospital milestones. Will discharge home today. Signing Physician: Christophe Urban MD *Electronically Signed* 12/22/23 0814 CHRISTOPHE URBAN MD PATIENT NAME: VALLEJOORION KRISTY PROGRESS NOTE DATE OF : [birth year] PHYSICIAN: CHRISTOPHE URBAN MD RPT #: [id number] REPORT IS CONFIDENTIAL AND NOT TO BE RELEASED WITHOUT AUTHORIZATION
== END 2023-12-22 10:40 | disposition home or self-care (01) | DRG 806 ==
LOC: FBC 08:43
PROVIDERS: ADMIT Obstetrics & Gynecology; ATTEND Obstetrics & Gynecology
PROC: 10E0XZZ Delivery of Products of Conception, External Approach (ICD-10-PCS; principal; 2023-12-20)
PROC: 3E0R3BZ Introduction of Anesthetic Agent into Spinal Canal, Percutaneous Approach (ICD-10-PCS; 2023-12-20)
PROC: 3E0R33Z Introduction of Anti-inflammatory into Spinal Canal, Percutaneous Approach (ICD-10-PCS; 2023-12-20)
PROC: 10907ZC Drainage of Amniotic Fluid, Therapeutic from Products of Conception, Via Natural or Artificial Opening (ICD-10-PCS; 2023-12-20)
DX: O76 Abnormality in fetal heart rate and rhythm complicating labor and delivery (principal); O98.32 Other infections with a predominantly sexual mode of transmission complicating childbirth; Z37.0 Single live birth; A60.09 Herpesviral infection of other urogenital tract; Z3A.39 39 weeks gestation of pregnancy
CPT/HCPCS: 01960; 36415; 80307; 85027; 86850; 86900; 86901; A9270; J2405; J2795; J3010; J7121